=== PATIENT | female | born 1985 | race Caucasian/White ===

== ENCOUNTER → 2016-08-10 | Outpatient (CLI) | payer MEDICARE, OTHER ==
[~2016-08-10] MED LIST: ALBUTEROL0.63 MG/3 INH; AVIANE-28 TABL1 EACH PO; AZITHROMYCIN1 GM PO; CRESTOR5 MG PO; GAMUNEX-C40 GM/400 IV; IFEREX 150150 MG PO; MULTI-DAY VITA1 EACH PO; ORSYTHIA-28 TA1 EACH PO; PREDNISONE 10 M10 MG PO; PROAIR HFA8.5 GM INH; SYNTHROID112 MCG PO; VITAMIN D31000 UNI2 PO
== END ==
LOC: OPSV 06:56
DX: D83.9 Common variable immunodeficiency, unspecified (principal)
CPT/HCPCS: 96365; 96366; J1561

== ENCOUNTER 2016-08-27 11:13 | Emergency (ER) | payer MEDICARE, OTHER ==
[~2016-08-27 11:13] MED LIST changes: -IFEREX 150150 MG PO; -ORSYTHIA-28 TA1 EACH PO
[2016-08-27 13:53] LABS: HEMOGLOBIN 7.5 gm/dl (12.3-15.3); RED BLOOD COUNT 3.74 M/UL (4.00-5.10); WHITE BLOOD COUNT 6.6 K/UL (4.5-11.0)
[2016-08-27 14:01] LABS: BUN/CREATININE RATIO 16 (0-10)
[2016-12-23] MEDS ORDERED: IFEREX 150150 MG PO (00:34)
[2016-12-23] MEDS ORDERED: ORSYTHIA-28 TA1 EACH PO (00:35)
== END 2016-08-28 00:14 | disposition short-term general hospital (02) ==
LOC: ER1 11:13
PROVIDERS: Emergency Medicine
DX: N39.0 Urinary tract infection, site not specified (principal); K92.1 Melena; Z90.49 Acquired absence of other specified parts of digestive tract; Z79.899 Other long term (current) drug therapy
CPT/HCPCS: 36415; 76830; 80053; 81001; 82272; 83690; 84703; 85025; 86850; 86900; 86901; 87210; 96374; 96375; 99291; C9113; J0696; J7050; Q9962

== ENCOUNTER → 2016-09-07 | Outpatient (CLI) | payer MEDICARE, OTHER ==
[~2016-09-07] MED LIST changes: +IFEREX 150150 MG PO; +ORSYTHIA-28 TA1 EACH PO
== END ==
LOC: OPSV 06:57
DX: D83.9 Common variable immunodeficiency, unspecified (principal)
CPT/HCPCS: 96365; 96366; J1561

== ENCOUNTER 2016-09-08 16:57 | Emergency (ER) | payer MEDICARE, OTHER ==
[~2016-09-08 16:57] MED LIST changes: -IFEREX 150150 MG PO; -ORSYTHIA-28 TA1 EACH PO
[2016-09-08 18:30] LABS: HEMOGLOBIN 9.7 gm/dl (12.3-15.3); RED BLOOD COUNT 3.99 M/UL (4.00-5.10); WHITE BLOOD COUNT 4.1 K/UL (4.5-11.0)
[2016-09-08 18:53] LABS: BUN/CREATININE RATIO 28 (0-10)
[2016-12-23] MEDS ORDERED: IFEREX 150150 MG PO (00:34)
[2016-12-23] MEDS ORDERED: ORSYTHIA-28 TA1 EACH PO (00:35)
== END 2016-09-08 23:00 | disposition home or self-care (01) ==
LOC: ER1 16:57
PROVIDERS: Emergency Medicine
DX: D64.9 Anemia, unspecified (principal)
CPT/HCPCS: 36415; 80053; 85025; 85610; 85730; 86850; 86900; 86901; 93005; 99284

== ENCOUNTER → 2016-10-05 | Outpatient (CLI) | payer MEDICARE, OTHER ==
[~2016-10-05] VITALS: Ht 157.5 cm; Wt 68.0 kg
[~2016-10-05] MED LIST changes: +IFEREX 150150 MG PO; +ORSYTHIA-28 TA1 EACH PO
== END ==
LOC: OPSV 06:57
DX: D83.9 Common variable immunodeficiency, unspecified (principal)
CPT/HCPCS: 96365; 96366; J1561; J1568

== ENCOUNTER → 2016-11-02 | Outpatient (CLI) | payer MEDICARE, OTHER ==
[~2016-11-02] VITALS: Ht 157.5 cm; Wt 68.0 kg
== END ==
LOC: OPSV 07:00
DX: D83.9 Common variable immunodeficiency, unspecified (principal)
CPT/HCPCS: 96365; 96366; J1568

== ENCOUNTER 2016-11-10 14:21 | Emergency (ER) | payer MEDICARE, OTHER ==
[~2016-11-10 14:21] MED LIST changes: -IFEREX 150150 MG PO; -ORSYTHIA-28 TA1 EACH PO
[2016-12-23] MEDS ORDERED: IFEREX 150150 MG PO (00:34)
[2016-12-23] MEDS ORDERED: ORSYTHIA-28 TA1 EACH PO (00:35)
== END 2016-11-10 15:53 | disposition home or self-care (01) ==
LOC: ER1 14:21
DX: J32.9 Chronic sinusitis, unspecified (principal); Z79.899 Other long term (current) drug therapy
CPT/HCPCS: 71020; 99283

== ENCOUNTER → 2016-11-30 | Outpatient (CLI) | payer MEDICARE, OTHER ==
[~2016-11-30] MED LIST changes: +IFEREX 150150 MG PO; +ORSYTHIA-28 TA1 EACH PO
== END ==
LOC: OPSV 06:59
DX: D83.9 Common variable immunodeficiency, unspecified (principal)
CPT/HCPCS: 96365; 96366; J1568

== ENCOUNTER → 2016-12-01 | Outpatient (CLI) | payer MEDICARE, OTHER | LOC: RAD 08:17 | DX: R19.5 Other fecal abnormalities (principal); D50.9 Iron deficiency anemia, unspecified; K44.9 Diaphragmatic hernia without obstruction or gangrene; K21.9 Gastro-esophageal reflux disease without esophagitis | CPT/HCPCS: 84703 ==

== ENCOUNTER → 2020-06-09 | Outpatient (CLI) | payer MEDICARE, OTHER ==
[~2020-06-09] MED LIST changes: +ALBUTEROL2.5 MG/3 M INH; +ASMANEX HFA13 G1 PO; +AZITHROMYCIN250 MG PO; +AZITHROMYCIN500 MG PO; +BENADRYL 25MG C25 MG PO; +IBUPROFEN600 MG PO; +IFEREX 150150 MG IV; -IFEREX 150150 MG PO; +IRON DEXTRAN IV; +MEDROL DOSEPAK 24 MG PO; +MEDROL4 MG PO; +OMNICEF 300 MG300 MG PO; +PREDNISONE 50 M50 MG PO; +SINGULAIR10 MG PO; +[UNRECOGNIZED DRUG - OTHER] IV
[2020-06-09 10:28] LABS: RED BLOOD COUNT 5.25 M/UL (4.00-5.10); WHITE BLOOD COUNT 6.6 K/UL (4.5-11.0)
[2020-06-09 11:19] LABS: BUN/CREATININE RATIO 17 (0-10)
[2020-06-10 08:14] LABS: THYROXINE (T4) 6.1 ug/dL (4.5-12.0)
== END ==
LOC: LAB 08:58
PROVIDERS: Nurse Practitioner Family
DX: E03.9 Hypothyroidism, unspecified (principal); E78.5 Hyperlipidemia, unspecified; J45.909 Unspecified asthma, uncomplicated
CPT/HCPCS: 36415; 80053; 80061; 84436; 84443; 84480; 85025

== ENCOUNTER → 2020-06-11 | Outpatient (CLI) | payer MEDICARE, OTHER | LOC: OPSV 07:00 | DX: J45.909 Unspecified asthma, uncomplicated (principal); Q32.1 Other congenital malformations of trachea; Q31.8 Other congenital malformations of larynx; E78.5 Hyperlipidemia, unspecified; D84.9 Immunodeficiency, unspecified; D50.9 Iron deficiency anemia, unspecified; L50.9 Urticaria, unspecified; Z88.6 Allergy status to analgesic agent; Z98.890 Other specified postprocedural states; Z87.891 Personal history of nicotine dependence | CPT/HCPCS: 96365; 96366; J1568 ==

== ENCOUNTER → 2020-07-02 | Outpatient (CLI) | payer MEDICARE, OTHER ==
[~2020-07-02] VITALS: Ht 157.5 cm; Wt 65.8 kg
== END ==
LOC: OPSV 07:00
DX: J45.909 Unspecified asthma, uncomplicated (principal)
CPT/HCPCS: 96365; 96366; J1568

== ENCOUNTER → 2020-07-23 | Outpatient (CLI) | payer MEDICARE, OTHER ==
[~2020-07-23] VITALS: Ht 157.5 cm; Wt 65.8 kg
[2020-07-24 08:14] LABS: IMMUNOGLOBULIN A, QN, SERUM 207 mg/dL (87-352); IMMUNOGLOBULIN G, QN, SERUM 1258 mg/dL (586-1602); IMMUNOGLOBULIN M, QN, SERUM 94 mg/dL (26-217); THYROXINE (T4) 7.8 ug/dL (4.5-12.0)
== END ==
LOC: OPSV 07:00
PROVIDERS: Internal Medicine Allergy & Immunology; Nurse Practitioner Family
DX: E03.9 Hypothyroidism, unspecified (principal); J45.909 Unspecified asthma, uncomplicated; Q32.1 Other congenital malformations of trachea; Q31.8 Other congenital malformations of larynx; D84.9 Immunodeficiency, unspecified; E78.5 Hyperlipidemia, unspecified; D50.9 Iron deficiency anemia, unspecified; L50.9 Urticaria, unspecified; Z79.51 Long term (current) use of inhaled steroids; Z79.899 Other long term (current) drug therapy; Z88.8 Allergy status to other drugs, medicaments and biological substances
CPT/HCPCS: 82784; 84436; 84443; 84480; 96365; 96366; J1568

== ENCOUNTER → 2020-08-15 | Outpatient (CLI) | payer MEDICARE, OTHER ==
[~2020-08-15] VITALS: Ht 157.5 cm; Wt 65.8 kg
== END ==
LOC: OPSV 08-13 07:00
DX: D84.9 Immunodeficiency, unspecified (principal); J45.909 Unspecified asthma, uncomplicated; Q32.1 Other congenital malformations of trachea; Q31.8 Other congenital malformations of larynx; E78.5 Hyperlipidemia, unspecified; D50.9 Iron deficiency anemia, unspecified; L50.9 Urticaria, unspecified; Z01.419 Encounter for gynecological examination (general) (routine) without abnormal findings; Z79.899 Other long term (current) drug therapy; Z88.8 Allergy status to other drugs, medicaments and biological substances; Z86.19 Personal history of other infectious and parasitic diseases
CPT/HCPCS: 96365; 96366; J1568

== ENCOUNTER → 2020-09-04 | Outpatient (CLI) | payer MEDICARE, OTHER ==
[~2020-09-04] VITALS: Ht 157.5 cm; Wt 65.8 kg
== END ==
LOC: OPSV 07:00
DX: J45.909 Unspecified asthma, uncomplicated (principal); Q32.1 Other congenital malformations of trachea; Q31.8 Other congenital malformations of larynx; E78.5 Hyperlipidemia, unspecified; D84.9 Immunodeficiency, unspecified; D50.9 Iron deficiency anemia, unspecified; L50.9 Urticaria, unspecified; Z32.00 Encounter for pregnancy test, result unknown; Z01.419 Encounter for gynecological examination (general) (routine) without abnormal findings; Z87.891 Personal history of nicotine dependence
CPT/HCPCS: 96365; 96366; J1568

== ENCOUNTER → 2020-09-25 | Outpatient (CLI) | payer MEDICARE, OTHER ==
[~2020-09-25] VITALS: Ht 157.5 cm; Wt 65.8 kg
== END ==
LOC: OPSV 07:00
DX: Z01.419 Encounter for gynecological examination (general) (routine) without abnormal findings (principal); J15.6 Pneumonia due to other Gram-negative bacteria; J45.909 Unspecified asthma, uncomplicated; Q32.1 Other congenital malformations of trachea; Q31.8 Other congenital malformations of larynx; E78.5 Hyperlipidemia, unspecified; D84.9 Immunodeficiency, unspecified; D50.9 Iron deficiency anemia, unspecified; L50.9 Urticaria, unspecified; Z87.891 Personal history of nicotine dependence
CPT/HCPCS: 96365; 96366; J1568

== ENCOUNTER → 2020-10-02 | Outpatient (CLI) | payer MEDICARE, OTHER ==
[2020-10-02 09:33] LABS: HEMOGLOBIN 13.4 gm/dl (12.3-15.3); RED BLOOD COUNT 5.14 M/UL (4.00-5.10); WHITE BLOOD COUNT 4.8 K/UL (4.5-11.0)
[2020-10-02 10:05] LABS: BUN/CREATININE RATIO 17 (0-10)
[2020-10-03 07:11] LABS: FSH, SERUM 12.5 mIU/mL (.); PROGESTERONE <0.1 ng/mL (.); THYROXINE (T4) 7.5 ug/dL (4.5-12.0); TRIIODOTHYRONINE (T3) 109 ng/dL (71-180); VITAMIN D, 25-HYDROXY 33.2 ng/mL (30.0-100.0)
[2020-10-11 03:09] LABS: ESTROGENS, TOTAL 116 pg/mL (.)
== END ==
LOC: LAB 08:21
PROVIDERS: Nurse Practitioner Family
DX: E03.9 Hypothyroidism, unspecified (principal); E78.5 Hyperlipidemia, unspecified; K76.0 Fatty (change of) liver, not elsewhere classified; J45.20 Mild intermittent asthma, uncomplicated; F41.1 Generalized anxiety disorder; R53.82 Chronic fatigue, unspecified; E55.9 Vitamin D deficiency, unspecified
CPT/HCPCS: 36415; 80053; 80061; 81001; 82672; 83001; 83002; 84144; 84436; 84443; 84480; 85025

== ENCOUNTER → 2020-10-16 | Outpatient (CLI) | payer MEDICARE, OTHER ==
[~2020-10-16] VITALS: Ht 157.5 cm; Wt 65.8 kg
== END ==
LOC: OPSV 07:00
DX: D84.9 Immunodeficiency, unspecified (principal); J45.909 Unspecified asthma, uncomplicated; E78.5 Hyperlipidemia, unspecified; D50.9 Iron deficiency anemia, unspecified; L50.9 Urticaria, unspecified; Z87.891 Personal history of nicotine dependence
CPT/HCPCS: 96365; 96366; J1568

== ENCOUNTER → 2020-11-06 | Outpatient (CLI) | payer MEDICARE, OTHER ==
[~2020-11-06] VITALS: Ht 157.5 cm; Wt 65.8 kg
== END ==
LOC: OPSV 07:01
DX: B99.9 Unspecified infectious disease (principal); J45.909 Unspecified asthma, uncomplicated; Q32.1 Other congenital malformations of trachea; Q31.8 Other congenital malformations of larynx; E78.5 Hyperlipidemia, unspecified; D84.9 Immunodeficiency, unspecified; D50.9 Iron deficiency anemia, unspecified; L50.9 Urticaria, unspecified; Z87.891 Personal history of nicotine dependence
CPT/HCPCS: 96365; 96366; J1568

== ENCOUNTER → 2020-11-27 | Outpatient (CLI) | payer MEDICARE, OTHER ==
[~2020-11-27] VITALS: Ht 157.5 cm; Wt 65.8 kg
== END ==
LOC: OPSV 07:00
DX: D84.9 Immunodeficiency, unspecified (principal); L50.9 Urticaria, unspecified; J45.909 Unspecified asthma, uncomplicated; Q32.1 Other congenital malformations of trachea; Q31.8 Other congenital malformations of larynx; E78.5 Hyperlipidemia, unspecified; D50.9 Iron deficiency anemia, unspecified
CPT/HCPCS: 96365; 96366; J1568

== ENCOUNTER → 2020-12-12 | Outpatient (CLI) | payer MEDICARE, OTHER ==
[2020-12-13 09:14] LABS: THYROXINE (T4) 9.4 ug/dL (4.5-12.0)
== END ==
LOC: LAB 11:02
PROVIDERS: Nurse Practitioner Family
DX: E03.9 Hypothyroidism, unspecified (principal)
CPT/HCPCS: 36415; 84436; 84443; 84480

== ENCOUNTER → 2020-12-18 | Outpatient (CLI) | payer MEDICARE, OTHER ==
[~2020-12-18] VITALS: Ht 157.5 cm; Wt 65.8 kg
== END ==
LOC: OPSV 07:00
DX: D84.9 Immunodeficiency, unspecified (principal); J45.909 Unspecified asthma, uncomplicated; E78.5 Hyperlipidemia, unspecified; Q32.1 Other congenital malformations of trachea; Q31.8 Other congenital malformations of larynx; D50.9 Iron deficiency anemia, unspecified; L50.9 Urticaria, unspecified; Z88.8 Allergy status to other drugs, medicaments and biological substances; Z79.2 Long term (current) use of antibiotics; Z79.899 Other long term (current) drug therapy
CPT/HCPCS: 96365; 96366; J1568

== ENCOUNTER → 2021-01-08 | Outpatient (CLI) | payer MEDICARE, OTHER ==
[~2021-01-08] VITALS: Ht 157.5 cm; Wt 65.8 kg
[2021-01-09 05:09] LABS: IMMUNOGLOBULIN A, QN, SERUM 181 mg/dL (87-352); IMMUNOGLOBULIN G, QN, SERUM 1243 mg/dL (586-1602); IMMUNOGLOBULIN M, QN, SERUM 86 mg/dL (26-217)
== END ==
LOC: OPSV 07:00
PROVIDERS: Internal Medicine Allergy & Immunology
DX: D84.9 Immunodeficiency, unspecified (principal); J45.909 Unspecified asthma, uncomplicated; Q32.1 Other congenital malformations of trachea; Q31.8 Other congenital malformations of larynx; E78.5 Hyperlipidemia, unspecified; D50.9 Iron deficiency anemia, unspecified; L50.9 Urticaria, unspecified; Z87.891 Personal history of nicotine dependence
CPT/HCPCS: 36415; 82784; 96365; 96366; J1568

== ENCOUNTER → 2021-01-29 | Outpatient (CLI) | payer MEDICARE, OTHER ==
[~2021-01-29] VITALS: Ht 157.5 cm; Wt 65.8 kg
== END ==
LOC: OPSV 07:00
DX: J45.909 Unspecified asthma, uncomplicated (principal); Q32.1 Other congenital malformations of trachea; E78.5 Hyperlipidemia, unspecified; D84.9 Immunodeficiency, unspecified; D50.9 Iron deficiency anemia, unspecified; L50.9 Urticaria, unspecified; Z79.899 Other long term (current) drug therapy
CPT/HCPCS: 96365; 96366; J1568

== ENCOUNTER → 2021-02-18 | Outpatient (CLI) | payer MEDICARE, OTHER ==
[~2021-02-18] VITALS: Ht 157.5 cm; Wt 65.8 kg
== END ==
LOC: OPSV 07:02
DX: J45.909 Unspecified asthma, uncomplicated (principal); Q32.1 Other congenital malformations of trachea; Q31.8 Other congenital malformations of larynx; E78.5 Hyperlipidemia, unspecified; D84.9 Immunodeficiency, unspecified; D50.9 Iron deficiency anemia, unspecified; L50.9 Urticaria, unspecified
CPT/HCPCS: 96365; 96366; J1568

== ENCOUNTER → 2021-03-11 | Outpatient (CLI) | payer MEDICARE, OTHER ==
[~2021-03-11] VITALS: Ht 157.5 cm; Wt 65.8 kg
== END ==
LOC: OPSV 06:59
DX: D83.9 Common variable immunodeficiency, unspecified (principal)
CPT/HCPCS: 96365; 96366; J1568

== ENCOUNTER → 2021-04-01 | Outpatient (CLI) | payer MEDICARE, OTHER ==
[~2021-04-01] VITALS: Ht 157.5 cm; Wt 65.8 kg
== END ==
LOC: OPSV 06:58
DX: D83.9 Common variable immunodeficiency, unspecified (principal)
CPT/HCPCS: 96365; 96366; J1568

== ENCOUNTER → 2021-04-17 | Outpatient (CLI) | payer MEDICARE, OTHER ==
[2021-04-18 08:13] LABS: THYROXINE (T4) 9.1 ug/dL (4.5-12.0)
== END ==
LOC: LAB 08:27
PROVIDERS: Nurse Practitioner Family
DX: E03.9 Hypothyroidism, unspecified (principal)
CPT/HCPCS: 36415; 84436; 84443; 84480

== ENCOUNTER → 2021-05-14 | Outpatient (CLI) | payer MEDICARE, OTHER ==
[~2021-05-14] VITALS: Ht 157.5 cm; Wt 65.8 kg
== END ==
LOC: OPSV 07:50
DX: D83.9 Common variable immunodeficiency, unspecified (principal)
CPT/HCPCS: 96365; 96366; J1568

== ENCOUNTER → 2021-06-11 | Outpatient (CLI) | payer MEDICARE, OTHER ==
[~2021-06-11] VITALS: Ht 157.5 cm; Wt 65.8 kg
== END ==
LOC: OPSV 07:41
DX: D83.9 Common variable immunodeficiency, unspecified (principal)
CPT/HCPCS: 96365; 96366; J1568

== ENCOUNTER → 2021-06-19 | Outpatient (CLI) | payer MEDICARE, OTHER ==
[2021-06-19 11:20] LABS: RED BLOOD COUNT 4.93 M/UL (4.00-5.10)
[2021-06-20 07:10] LABS: A/G RATIO 1.3 (1.2-2.2); ALKALINE PHOSPHATASE, S 59 IU/L (44-121); ALT (SGPT) 16 IU/L (0-32); AST (SGOT) 23 IU/L (0-40); BILIRUBIN, TOTAL 0.6 mg/dL (0.0-1.2); BUN 11 mg/dL (6-20); BUN/CREATININE RATIO 15 (9-23); CARBON DIOXIDE, TOTAL 20 mmol/L (20-29); CHLORIDE, SERUM 106 mmol/L (96-106); CHOLESTEROL, TOTAL 140 mg/dL (100-199); CREATININE, SERUM 0.75 mg/dL (0.57-1.00); EGFR IF AFRICN AM 117 (>59); EGFR IF NONAFRICN AM 101 (>59); ESTIM. AVG GLU (EAG) 108 mg/dL (.); GLOBULIN, TOTAL 3.1 g/dL (1.5-4.5); GLUCOSE, SERUM 76 mg/dL (65-99); HDL CHOLESTEROL 40 mg/dL (>39); HEMOGLOBIN A1C 5.4 % (4.8-5.6); LDL CHOLESTEROL CALC 84 mg/dL (0-99); LDL/HDL RATIO 2.1 ratio (0.0-3.2); POTASSIUM, SERUM 4.4 mmol/L (3.5-5.2); PROTEIN, TOTAL, SERUM 7.2 g/dL (6.0-8.5); SODIUM, SERUM 138 mmol/L (134-144); T. CHOL/HDL RATIO 3.5 ratio (0.0-4.4); TRIGLYCERIDES 83 mg/dL (0-149)
[2021-06-20 08:12] LABS: THYROXINE (T4) 10.4 ug/dL (4.5-12.0); TRIIODOTHYRONINE (T3) 153 ng/dL (71-180); TSH 0.391 uIU/mL (0.450-4.500); VITAMIN D, 25-HYDROXY 30.6 ng/mL (30.0-100.0)
== END ==
LOC: LAB 09:47
PROVIDERS: Nurse Practitioner Family
DX: E03.9 Hypothyroidism, unspecified (principal); E78.5 Hyperlipidemia, unspecified; F41.1 Generalized anxiety disorder; K21.9 Gastro-esophageal reflux disease without esophagitis; R73.09 Other abnormal glucose
CPT/HCPCS: 36415; 80053; 80061; 81001; 83036; 84436; 84443; 84480; 85025

== ENCOUNTER → 2021-07-02 | Outpatient (CLI) | payer MEDICARE, OTHER | LOC: OPSV 07:34 | DX: D83.9 Common variable immunodeficiency, unspecified (principal) | CPT/HCPCS: 96365; 96366; J1568 ==

== ENCOUNTER → 2021-07-13 | Outpatient (CLI) | payer MEDICARE, OTHER ==
[2021-07-13 09:31] LABS: HEMOGLOBIN 10.3 gm/dl (12.3-15.3); RED BLOOD COUNT 4.99 M/UL (4.00-5.10); WHITE BLOOD COUNT 6.5 K/UL (4.5-11.0)
[2021-07-14 08:13] LABS: THYROXINE (T4) 7.4 ug/dL (4.5-12.0); TSH 11.9 uIU/mL (0.450-4.500)
== END ==
LOC: LAB 08:49
PROVIDERS: Nurse Practitioner Family
DX: E03.9 Hypothyroidism, unspecified (principal); D64.9 Anemia, unspecified
CPT/HCPCS: 36415; 84436; 84443; 84480; 85025

== ENCOUNTER 2021-07-20 11:35 | Emergency (ER) | payer MEDICARE, OTHER | END 2021-07-20 15:11 | disposition home or self-care (01) | LOC: ER1 11:35 | DX: R51.9 Headache, unspecified (principal); Z88.8 Allergy status to other drugs, medicaments and biological substances | CPT/HCPCS: 70450; 96374; 96375; 99283; J1100; J1200; J1885; J2765 ==

== ENCOUNTER → 2021-07-22 | Outpatient (CLI) | payer MEDICARE, OTHER ==
[~2021-07-22] VITALS: Ht 157.5 cm; Wt 65.8 kg
== END ==
LOC: OPSV 08:00
DX: D83.9 Common variable immunodeficiency, unspecified (principal)
CPT/HCPCS: 82784; 96365; 96366; J1568

== ENCOUNTER → 2021-08-24 | Outpatient (CLI) | payer MEDICARE, OTHER ==
[~2021-08-24] VITALS: Ht 157.5 cm; Wt 65.8 kg
== END ==
LOC: OPSV 08-12 08:00
DX: D83.9 Common variable immunodeficiency, unspecified (principal)
CPT/HCPCS: 96365; 96366; J1568

== ENCOUNTER → 2021-10-08 | Outpatient (CLI) | payer MEDICARE, OTHER ==
[2021-10-08 10:00] LABS: HEMOGLOBIN 10.8 gm/dl (12.3-15.3); RED BLOOD COUNT 5.25 M/UL (4.00-5.10); WHITE BLOOD COUNT 18.2 K/UL (4.5-11.0)
[2021-10-08 10:27] LABS: BUN/CREATININE RATIO 15 (0-10)
[2021-10-09 07:12] LABS: THYROXINE (T4) 12.6 ug/dL (4.5-12.0); VITAMIN D, 25-HYDROXY 27.1 ng/mL (30.0-100.0)
== END ==
LOC: LAB 09:28
PROVIDERS: Nurse Practitioner Family
DX: E03.9 Hypothyroidism, unspecified (principal); E78.5 Hyperlipidemia, unspecified; G43.909 Migraine, unspecified, not intractable, without status migrainosus; K21.9 Gastro-esophageal reflux disease without esophagitis; E55.9 Vitamin D deficiency, unspecified
CPT/HCPCS: 36415; 80053; 80061; 84436; 84443; 84480; 85025

== ENCOUNTER → 2022-01-01 | Outpatient (CLI) | payer MEDICARE ==
[2022-01-01 09:56] LABS: HEMOGLOBIN 16.1 gm/dl (12.3-15.3); RED BLOOD COUNT 5.75 M/UL (4.00-5.10); WHITE BLOOD COUNT 5.5 K/UL (4.5-11.0)
[2022-01-01 10:25] LABS: BUN/CREATININE RATIO 21 (0-10)
[2022-01-02 07:11] LABS: VITAMIN D, 25-HYDROXY 27.7 ng/mL (30.0-100.0)
[2022-01-02 08:13] LABS: THYROXINE (T4) 10.7 ug/dL (4.5-12.0)
== END ==
LOC: LAB 09:04
PROVIDERS: Nurse Practitioner Family
DX: E03.9 Hypothyroidism, unspecified (principal); G43.909 Migraine, unspecified, not intractable, without status migrainosus; E78.5 Hyperlipidemia, unspecified; K21.9 Gastro-esophageal reflux disease without esophagitis; E55.9 Vitamin D deficiency, unspecified
CPT/HCPCS: 36415; 80053; 80061; 84436; 84443; 84480; 85025